=== PATIENT | male | born 1990 | race Caucasian/White ===

== ENCOUNTER 2021-12-03 08:01 | Outpatient (REF) | payer BC, SELFPAY ==
[2021-12-03 11:35] LABS: MANUAL DIFF FLAG NO
[2021-12-03 11:40] LABS: Basophils Absolute Auto 0.1 X10*3/uL (0.0-0.2); Basophils Percent Auto 0.9 % (0-2); Eosinophils Absolute Auto 0.2 X10*3/uL (0.0-0.4); Eosinophils Percent Auto 3.6 % (0-4); Hematocrit 42.5 % (42.0-52.0); Imm Gran Abs Auto 0.03 X10*3/uL (0.00-0.03); Imm Gran Pct Auto 0.5 % (0.0-0.4); Lymphocytes Absolute Auto 2.4 X10*3/uL (1.2-4.9); Lymphocytes Percent Auto 37.3 % (20-40); Mean Corpuscular HGB Conc 32.9 g/dl (31.0-36.0); Mean Platelet Volume 9.4 fL (9.4-12.4); Monocytes Absolute Auto 0.6 X10*3/uL (0.1-1.2); Neutrophils Absolute Auto 3.2 x10*3/uL (2.0-8.3); Neutrophils Percent Auto 48.7 % (45-73); Platelet Count 362 X10*3/uL (160-400); Red Cell Distribution Width 12.5 % (11.0-16.0); White Blood Count 6.5 X10*3/uL (4.8-10.8)
[2021-12-03 11:54] LABS: Alanine Aminotransferase 26 U/L (0-40); Albumin Level 4.5 g/dL (3.5-5.0); Alkaline Phosphatase 57 U/L (39-117); Anion Gap 13 (12-20); Aspartate Amino Transferase 11 U/L (5-37); Bilirubin Total 0.4 mg/dL (0.0-1.0); Blood Urea Nitrogen 18 mg/dL (9-16); Calcium 9.7 mg/dL (8.4-10.2); Carbon Dioxide 27 mmol/L (22-29); Chloride 104 mmol/L (96-108); Cholesterol 167 mg/dL; Estimated Glomerular Filt Rate > 60; Glucose Fasting 110 mg/dL (60-99); HDL Cholesterol 38 mg/dL; LDL Cholesterol Calculated 91 mg/dl; Potassium 4.6 mmol/L (3.3-5.1); Sodium 139 mmol/L (135-145); Total Protein 7.4 g/dL (6.5-8.0); Triglycerides 190 mg/dL
[2021-12-03 12:10] LABS: HBS Num1 3.53 mIU/mL (0-7.99); HBc Num1 0.12 S/CO (0.00-0.79); HBsAGNum1 0.18 S/CO (0.00-0.99); HIV AB/AG Nonreactive (Nonreactive); HIV Num 1 0.12 S/CO (0.00-0.99); Hepatitis B Core Antibody Nonreactive (Nonreactive); Hepatitis B Surface Antigen Negative (Negative); ~Hepatitis B Surface Antibody NONREACTIVE (Nonreactive); ~Hepatitis C Antibody Nonreactive (Nonreactive)
[2021-12-03 12:33] LABS: Erythrocyte Sedimentation Rate 6 MM/HR (0-15)
[2021-12-04 06:51] LABS: Syphilis Screen Nonreactive (Nonreactive)
[2021-12-05 11:36] LABS: CRP High Sensitivity 1.6 mg/L
== END 2021-12-03 08:02 | disposition home or self-care (01) ==
LOC: HO.WFDLDS 08:01
PROVIDERS: Visit Provider Family Medicine
DX: Z00.00 Encounter for general adult medical examination without abnormal findings (principal); Z11.4 Encounter for screening for human immunodeficiency virus [HIV]; Z11.3 Encounter for screening for infections with a predominantly sexual mode of transmission; R61 Generalized hyperhidrosis
CPT/HCPCS: 36415; 80053; 80061; 84443; 85025; 85652; 86141; 86704; 86706; 86780; 86803; 87340; 87389

== ENCOUNTER 2023-01-22 14:38 | Outpatient (AMB) | payer SELFPAY ==
--- NOTE | 2023-01-22 14:42 | MHC.PC.OV ---
Vital Signs 01/22/23 14:44 Height 5 ft 8 in Weight 174 lb BMI 26.5 BP 122/74 Blood Pressure Location Lt brachial Position Sitting Pulse 81 Pulse Source Pulse Oximeter Pulse Oximetry (%) 97 Intake Visit Reasons: Discussed difficulty concentra Intake Note: pt is here to discuss difficulty concentrating Systems Requirements Planner Required: No Accompanied by: Self / Same As Patient Allergies No Known Allergies Allergy (Verified 01/22/23 14:43) Tobacco use date assessed: 01/22/23 Dental Screening Dental Screen Date: 01/22/23 Did you have a dental visit in the last 12 months?: No Did you have a dental problem in the last 6 months where you did not have access to dental care?: No Was dental information given to patient?: Patient declined HPI Discussed difficulty concentra HPI Details 32 y/o male presents to discuss ADHD diagnosis. Had made a referral to neuropsych but he had been having difficulties being seen. Neuropsych had not reached back to him but he states he had been able to be seen by [facility]. Pt also reports some vertigo. Symptoms associated with rolling over in bed. [facility] Medical History Anxiety Depression History of seizures as a child Surgical History [place] teeth removed Family History Other Mental health disorder Social History Household Members Other:: partner Housing: House Alcohol intake: current Alcohol intake frequency: holidays/special occasions only Patient Tobacco Use Status: Never used Tobacco e-Cigarette/Vaping Use: Never Used Second Hand Smoke Exposure: No service: No Current occupational status: employed Current occupational exposures/hazards: No Cognitive needs: No Hearing needs: No Vision needs: Yes Questionnaire Thrive Questionnaire Date Thrive assessed: 07/04/22 KATHY-7 AMB Questionnaire KATHY-7 Date KATHY - 7 assessed: 07/04/22 Source: Developed by Drs. Tin Ferrara, Francesca Gentile, Yomi Parker and colleagues, with an educational ela from [employer]. Review of Systems Const Denies chills, Denies fatigue, Denies fever(s), Denies headache(s) and Denies weakness ENT Denies dizziness and Denies headache(s) Card Denies dyspnea Resp Denies cough, Denies dyspnea, Denies wheezing and Denies other (shortness of breath) Musc Denies numbness and Denies tingling Neuro Denies dizziness, Denies headache(s), Denies numbness, Denies tingling and Denies weakness Psych Reports anxiety and Denies depression Endo Denies fatigue Aller/Immun Denies wheezing Physical exam (Primary Care) Vital Signs: Last Vital Signs Pulse 81 01/22/23 14:44 BP 122/74 01/22/23 14:44 Pulse Ox 97 01/22/23 14:44 BMI result Body Mass Index 26.5 Tobacco/Smoking Status: Tobacco use Status Tobacco use date assessed 01/22/23 01/22/23 14:47 Patient Tobacco Use Status Never used Tobacco 01/22/23 14:47 e-Cigarette/Vaping Use Never Used 01/22/23 14:47 Thrive Assessment: Date of Thrive Assessment Date Thrive assessed 07/04/22 01/22/23 14:47 Const General: well developed; No acute distress Nutritional Appearance: well nourished Orientation/consciousness: patient oriented x3 HENMT Head: Yes normocephalic and Yes atraumatic Eyes General: appearance normal, both eyes and all related structures Pupils: Equal, round and reactive pupils present EOM: EOMs intact bilaterally Resp Effort & Inspection: normal respiratory effort Neuro General: patient oriented x3 and gait normal Cranial nerves: Yes Equal, round and reactive pupils present Psych Affect: normal affect Assessment and Plan Assessment & Plan (1) Difficulty concentrating: Code(s): R41.840 - Attention and concentration deficit Plan: Patient was seen by [employer] for evaluation of difficulty concentrating and has diagnosed him with ADHD; Alyce has shown me the digital image of his diagnosis letter. He will have this forwarded to us and we can begin treatment. Alyce does have some anxiety and would like to try a medication such as Strattera prior to considering medications such as Vyvanse or Adderall. EKG today however shows incomplete right bundle branch block. Will refer to Cardiology prior to beginning therapy for ADHD (2) Vertigo: Code(s): R42 - Dizziness and giddiness Plan: Vertigo symptoms associated with rolling over in bed Appears to be true vertigo Referred for physical therapy/vestibular rehab (3) Incomplete right bundle branch block: Code(s): I45.10 - Unspecified right bundle-branch block Plan: Referred to Cardiology Orders: Orders PT Evaluation and Treatment Today R42 - Dizziness and giddiness AMB EKG-In Office Today R41.840 - Attention and concentration deficit, R42 - Dizziness and giddiness Referrals Cardiology Referral I45.10 - Unspecified right bundle-branch block Coding Level of Care Code Est Pt Level 4 (97425) Diagnoses Difficulty concentrating R41.840 Vertigo R42 Incomplete right bundle branch block I45.10
[2023-01-22 14:44] VITALS: BP 122/74; PULSE 81; O2SAT 97; BMI 26.5
== END 2023-01-22 15:35 | disposition home or self-care (01) ==
PROVIDERS: PCP Family Medicine; Visit Provider Family Medicine
DX: R41.840 Attention and concentration deficit (principal); R42 Dizziness and giddiness; I45.10 Unspecified right bundle-branch block
CPT/HCPCS: 99214

== ENCOUNTER 2023-02-24 12:01 | Outpatient (REF) | payer OTHER, SELFPAY ==
[2023-02-24 15:00] LABS: Estimated Average Glucose 103 mg/dL; Hemoglobin A1c % 5.2 % (<6.0)
[2023-02-24 15:02] LABS: Anion Gap 9 (12-20); Blood Urea Nitrogen 11 mg/dL (9-16); Calcium 9.1 mg/dL (8.4-10.2); Carbon Dioxide 28 mmol/L (22-29); Chloride 106 mmol/L (96-108); Estimated Glomerular Filt Rate > 60; Glucose Fasting 90 mg/dL (60-99); Potassium 4.2 mmol/L (3.3-5.1); Sodium 139 mmol/L (135-145)
== END 2023-02-24 12:02 | disposition home or self-care (01) ==
LOC: HO.WFDLDS 12:01
PROVIDERS: Visit Provider Family Medicine
DX: R73.01 Impaired fasting glucose (principal)
CPT/HCPCS: 36415; 80048; 83036

== ENCOUNTER 2023-02-25 11:52 | Outpatient (AMB) | payer OTHER, SELFPAY ==
[2023-02-25 11:54] VITALS: BP 122/72; PULSE 79; O2SAT 97; BMI 26.9
--- NOTE | 2023-02-25 11:54 | MHC.PC.OV ---
Vital Signs 02/25/23 11:54 Height 5 ft 8 in Weight 177 lb BMI 26.9 BP 122/72 Blood Pressure Location Lt brachial Position Sitting Pulse 79 Pulse Source Pulse Oximeter Pulse Oximetry (%) 97 Oxygen Delivery Method Room Air Intake Visit Reasons: CPE with f/u labs and health maint Intake Note: Pattient is here for physical today, and follow up from last visit, cardiology referral Allergies No Known Allergies Allergy (Verified 02/25/23 12:03) Tobacco use date assessed: 02/25/23 Dental Screening Dental Screen Date: 02/25/23 Did you have a dental visit in the last 12 months?: Yes Did you have a dental problem in the last 6 months where you did not have access to dental care?: No Was dental information given to patient?: Yes HPI CPE with f/u labs and health maint HPI Details 32 y/o pt presents for a CPE with f/u labs and health maintenance. Some labs were drawn 02/24/23. Reviewed labs with pt. Hx of elevated fasting glucose and A1c 5.2%. No recent lipid panel to review. Pt states she tries to eat a healthy diet. Ongoing difficulty concentrating and nurse psych has established ADHD diagnosis. However pt has EKG with R bundle branch block. [facility] Medical History Anxiety Depression History of seizures as a child Surgical History [place] teeth removed Family History Other Mental health disorder Social History Household Members Other:: partner Housing: House Alcohol intake: current Alcohol intake frequency: holidays/special occasions only Patient Tobacco Use Status: Never used Tobacco e-Cigarette/Vaping Use: Never Used Second Hand Smoke Exposure: No service: No Current occupational status: employed Current occupational exposures/hazards: No Cognitive needs: No Hearing needs: No Vision needs: Yes Questionnaire Thrive Questionnaire Date Thrive assessed: 07/04/22 KATHY-7 AMB Questionnaire KATHY-7 Date KATHY - 7 assessed: 07/04/22 Source: Developed by Drs. Tin Ferrara, Francesca Gentile, Yomi Parker and colleagues, with an educational ela from [employer]. Review of Systems Const Denies chills, Denies fatigue, Denies fever(s), Denies headache(s) and Denies weakness Eyes Denies change in vision ENT Denies dizziness, Denies headache(s), Denies hearing loss, Denies nasal congestion, Denies sinus pain, Denies sinus pressure and Denies sore throat Card Denies chest pain, Denies lightheadedness, Denies dyspnea and Denies other (palpitations) Resp Denies cough, Denies dyspnea and Denies wheezing GI Denies abdominal pain, Denies melena, Denies hematochezia, Denies change in bowel habits, Denies dyspepsia and Denies nausea Denies hematuria and Denies dysuria Musc Denies abnormal gait, Denies myalgias, Denies arthralgias, Denies numbness and Denies tingling Skin/Breast Denies rash, Denies unusual bruising and Denies wounds Neuro Denies abnormal gait, Denies dizziness, Denies headache(s), Denies memory loss, Denies numbness, Denies Sensory deficit (Neuro), Denies tingling and Denies weakness Psych Denies anxiety, Denies depression and Denies memory loss Endo Denies cold intolerance, Denies fatigue, Denies heat intolerance, Denies polydipsia and Denies polyuria Roshan/Lymph Denies easy bleeding and Denies easy bruising Aller/Immun Denies wheezing Physical exam (Primary Care) Vital Signs: Last Vital Signs Pulse 79 02/25/23 11:54 BP 122/72 02/25/23 11:54 Pulse Ox 97 02/25/23 11:54 Oxygen Delivery Method Room Air 02/25/23 11:54 BMI result Body Mass Index 26.9 Tobacco/Smoking Status: Tobacco use Status Tobacco use date assessed 02/25/23 02/25/23 12:10 Patient Tobacco Use Status Never used Tobacco 02/25/23 12:01 e-Cigarette/Vaping Use Never Used 02/25/23 12:01 Thrive Assessment: Date of Thrive Assessment Date Thrive assessed 07/04/22 02/25/23 12:01 Const General: no acute distress, well developed, alert and awake Nutritional Appearance: well nourished Orientation/consciousness: patient oriented x3 HENMT Head: Yes normocephalic and Yes atraumatic Ears: hearing grossly normal bilaterally and TM's normal bilaterally General nose exam: Normal external nose present and Normal nares present Mouth: Normal oral and palatal mucosa present and moist mucous membranes Teeth and gingiva: dentition normal Throat: Yes posterior oropharynx normal Eyes General: appearance normal, both eyes and all related structures Pupils: Equal, round and reactive pupils present and Pupil accommodation reflex normal EOM: EOMs intact bilaterally Neck Neck: Yes normal visual inspection, Yes no lymphadenopathy and Yes trachea midline Thyroid: Thyroid normal Carotids: no bruits Lymphatic: no lymphadenopathy noted Chest Chest palpation & inspection: normal inspection of the chest Resp Effort & Inspection: normal respiratory effort Auscultation: clear to auscultation bilaterally Cardio Rate: regular rate Rhythm: regular rhythm Heart sounds: S1 normal heart sound present, S2 normal heart sound present, no gallops, no murmurs and no rubs Bruits: no abdominal aortic bruits and no carotid bruits GI Palpation (GI): No Abdominal aortic bruit present, Soft to palpation, nontender, No hepatosplenomegaly present and No Rebound tenderness present Auscultation: normal bowel sounds General: Yes no CVA tenderness Back/Spine/Pelvis Back: no CVA tenderness Cervical Spine: cervical ROM normal and No Cervical spine tenderness Thoracic/Lumbar Spine: thoraco-lumbar ROM normal, No pain with thoraco-lumbar ROM, No thoracic spinal tenderness and No lumbar spinal tenderness Skin Lesions: no lesions Rashes: no rashes Trauma: no lacerations or abrasions Wounds: no wounds Nails: normal Neuro General: patient oriented x3 Cranial nerves: Yes Equal, round and reactive pupils present Cognition (Neuro): normal cognition Gait exam (Neuro): Normal gait present Motor exam (neuro): 5/5 motor strength present throughout Sensory Exam: No Sensory deficit (Neuro) Deep tendon reflexes (DTR's): Right patellar reflex intensity grade: 2+ and Left patellar reflex intensity grade: 2+ Extrem General: Yes normal to inspection and No edema Psych Appearance: grossly normal Affect: normal affect Attitude: cooperative Thought process: Normal thought process present Assessment and Plan Assessment & Plan (1) Adult general medical exam: Code(s): Z00.00 - Encounter for general adult medical examination without abnormal findings Plan: Alyce presents for her annual physical exam Encouraged healthy diet with active lifestyle and plenty of exercise (2) Difficulty concentrating: Code(s): R41.840 - Attention and concentration deficit Plan: Ongoing difficulty concentrating and nurse psych has established ADHD diagnosis However, patient has EKG with right bundle-branch block Asking Cardiology to evaluate regarding safety of stimulant medications. She will follow-up in a mid April after her cardiology appointment. (3) Depression with anxiety: Code(s): F41.8 - Other specified anxiety disorders Plan: May improve with addition bupropion We can follow this (4) Right bundle branch block: Code(s): I45.10 - Unspecified right bundle-branch block Plan: Has appointment with cardiology in early April Coding Level of Care Code Est Pt Level 3 (01937) Est Pt Prev Care 18-39y(45629) Diagnoses Adult general medical exam Z00.00 Difficulty concentrating R41.840 Depression with anxiety F41.8 Right bundle branch block I45.10
== END 2023-02-25 13:22 | disposition home or self-care (01) ==
PROVIDERS: PCP Family Medicine; Visit Provider Family Medicine
DX: Z00.00 Encounter for general adult medical examination without abnormal findings (principal); R41.840 Attention and concentration deficit; F41.8 Other specified anxiety disorders; I45.10 Unspecified right bundle-branch block
CPT/HCPCS: 99395

== ENCOUNTER 2023-04-30 14:01 | Outpatient (AMB) | payer SELFPAY ==
[2023-04-30 14:03] VITALS: BP 102/66; PULSE 98; BMI 27.4
--- NOTE | 2023-04-30 14:03 | A.OFFVIS_ITS ---
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 Patient does not have any cardiac issues whatsoever including coronary disease or cardiomyopathy or in fact anything cardiac sounding. Patient does not have any specific symptoms either including chest pains or shortness of breath or in fact anything cardiac sounding symptoms. No significant family history from cardiac standpoint. [facility] Medical History Anxiety Depression History of seizures as a child Surgical History [place] teeth removed Family History Other Mental health disorder Social History Household Members Other:: partner Housing: House Alcohol intake: current Alcohol intake frequency: holidays/special occasions only Patient Tobacco Use Status: Never used Tobacco e-Cigarette/Vaping Use: Never Used Second Hand Smoke Exposure: No service: No Current occupational status: employed Current occupational exposures/hazards: No Cognitive needs: No Hearing needs: No Vision needs: Yes Review of Systems Const Denies chills, Denies daytime sleepiness, Denies fatigue, Denies fever(s), Denies frequent falls, Denies night sweats, Denies snoring, Denies weakness, Denies weight gain and Denies weight loss Eyes Denies loss of vision ENT Denies dizziness and Denies hearing loss Card Denies chest pain, Denies chest pain with activity, Denies syncope, Denies rapid heart rate, Denies edema, Denies claudication, Denies leg edema, Denies lightheadedness, Denies palpitations, Denies dyspnea, Denies dyspnea on exertion and Denies orthopnea Resp Denies cough, Denies excessive phlegm production, Denies dyspnea, Denies dyspnea on exertion, Denies snoring and Denies wheezing GI Denies abdominal pain, Denies hematochezia, Denies change in bowel habits, Denies change in stool character, Denies heartburn, Denies nausea and Denies vomiting Denies hematuria, Denies dysuria and Denies urinary frequency Musc Denies arthralgias, Denies muscle weakness, Denies numbness and Denies tingling Skin/Breast Denies nail changes and Denies rash Neuro Denies Abnormal speech present, Denies dizziness, Denies syncope, Denies frequent falls, Denies loss of vision, Denies memory loss, Denies numbness, Denies tingling and Denies weakness Psych Denies depression and Denies memory loss Endo Denies fatigue and Denies palpitations Aller/Immun Denies wheezing Physical Exam Vital Signs: Last Vital Signs Pulse 98 04/30/23 14:03 BP 102/66 04/30/23 14:03 BMI result Body Mass Index 27.4 Const General: comfortable and no acute distress Orientation/consciousness: patient oriented x3 HEENT Other: Unremarkable Head: Yes normal to inspection Neck Neck: Yes normal visual inspection Chest Chest palpation & inspection: normal inspection of the chest Resp Auscultation: clear to auscultation bilaterally Cardio Palpation: normal PMI Heart sounds: S1 normal heart sound present, S2 normal heart sound present, no gallops, no murmurs and no rubs GI Palpation (GI): Soft to palpation Back/Spine/Pelvis Other: unremarkable Skin General skin exam: no rashes or lesions noted Neuro General: patient oriented x3 Speech: No Abnormal speech present Extrem General: Yes normal to inspection Psych Mental Status: mental status grossly normal Assessment & Plan Assessment & Plan (1) Right bundle branch block: Code(s): I45.10 - Unspecified right bundle-branch block Plan Recent EKG reviewed. Underlying rhythm is sinus at 72/Min with sinus arrhythmia; incomplete right bundle-branch block pattern; normal NV and corrected QT. Findings discussed with patient. We can get echocardiogram to ensure there is no structural finding. Otherwise, mainly reassurance. Orders: Orders CA echo transthoracic complete Today I45.10 - Unspecified right bundle-branch block Coding Level of Care Code New Pt Level 3 (84007) Diagnoses Right bundle branch block I45.10
== END 2023-04-30 14:21 | disposition home or self-care (01) ==
PROVIDERS: PCP Family Medicine; Visit Provider Internal Medicine
DX: I45.10 Unspecified right bundle-branch block (principal)
CPT/HCPCS: 99203

== ENCOUNTER → 2023-04-30 14:01 | Outpatient (BNVA) | payer BC, SELFPAY | PROVIDERS: PCP Family Medicine; Visit Provider Internal Medicine ==

== ENCOUNTER → 2023-05-26 12:53 | Outpatient (REF) | payer BC, SELFPAY ==
--- NOTE | 2023-05-26 12:57 | CA_ITS ---
Transthoracic Echocardiogram Patient (Last, First, Middle): Alyce Gorman, Gender: Male Date of : 1990 Age: 32 Procedure Date: 05/26/2023 Procedure Type: Transthoracic Echocardiogram Location: OP Height: 172.72 cm Weight: 79.38 kg BSA: 1.93 m2 Heart Rate: bpm BP: 116 / 70 mmHg [employer]aa Certified Powerplant Mechanic: CAYLA Referring MD: Osvaldo North MD [employer] Cook: Kiet García MD Symptoms: I45.10 - Unspecified right bundle-branch block Study Quality: Adequate w Contrast ECG Rhythm: Sinus Conclusions: - Essentially normal stusy Findings Procedure Information Contrast agent, definity, is being given per protocol without apparent complications. Left Ventricle Normal left ventricular cavity size. There is normal left ventricular wall thickness. The left ventricular systolic function is hyperdynamic. The visually estimated ejection fraction is >70%. Spectral Doppler is indicative of a normal filling pattern. Right Ventricle Normal right ventricular cavity size and systolic function. Atria The left atrium is normal in size. Interatrial shunt cannot be excluded. The right atrium is normal in size. Aortic Valve Normal aortic valve structure and function. There is no aortic valve stenosis. There is no aortic valve regurgitation. Mitral Valve Likely normal mitral valve structure and function. There is no mitral valve regurgitation. There is no mitral valve stenosis. Pulmonic Valve The pulmonic valve is likely normal. There is no pulmonic valve regurgitation. Tricuspid Valve Likely normal tricuspid valve structure and function. There is trace tricuspid valve regurgitation. The right ventricular systolic pressure is normal. The right ventricular systolic pressure is 19 mmHg. Normal right atrial pressure. There is no evidence of pulmonary hypertension. Great Vessels All visible segments of the aorta are normal in size. The pulmonary artery was not well visualized. Venous The inferior vena cava is normal in size and collapses greater than 50% with inspiration. Pericardium/Pleural There is no evidence of pericardial effusion. Prior Study Comparison No prior study available for comparison. Measurements 2D Linear Measurements IVSd: 0.89 0.6-0.9/0.6-1.0 cm LVIDd: 4.20 3.9-5.3/4.2-5.9 cm LVIDd Index: 2.18 2.4-3.2/2.2-3.1 cm/m2 LVIDs: 2.63 2.0-3.6 cm LVPWd: 0.89 0.7-1.1 cm LA Diam: 2.80 2.7-3.8/3.0-4.0 cm LAIDs Index: 1.45 1.5-2.3 cm/m2 LV Mass: 144.46 67-162/88-224 g LV Mass Index: 74.85 43-95/49-115 g/m2 LVOT Diam: 2.10 3.0+(-)1.3 cm 2D Systolic Function EF 4C: 74.10 >55% EF 2C: 67.40 >55% EF BiP: 71.20 >55% Mitral Valve MV Pk E: 0.79 MV PK A: 0.59 MV Decel Time: 211.00 E/A: 1.30 E'Lateral: 17.80 E'Medial: 10.80 E/E' Med: 7.30 E/E' Lat: 4.40 PHT: 62.00 MVA PHT: 3.55 Decel [place]: 3.74 Aortic Valve AoV Pk El: 1.20 AoV Mn El: 0.77 AoV VTI: 0.24 AoV Pk Grad: 6.00 Aov Mn Grad: 3.00 PATTI Cont.VTI: 3.07 LVOT LVOT Pk El: 1.08 LVOT Mn El: 0.74 LVOT VTI: 0.21 LVOT Pk Grad: 5.00 LVOT Mn Grad: 3.00 LVOT Diam: 2.10 LVOT Area: 3.46 Diastolic Function MV Pk E: 0.79 MV Pk A: 0.59 E/A: 1.30 E'Medial: 10.80 E/E' Med: 7.30 E' Laterial: 17.80 E/E' Lat: 4.40 Right Ventricle TAPSE (mm): 20.80 TVS' El: 11.20 Tricuspid Valve TR Pk El: 2.00 TR Pk Grad: 16.00 RA Press: 3.00 RVSP: 19.00 Great Vessels Aorta Sinus of Valsalva: 3.01 2.0-3.[address] [place]: 2.61 1.7-3.4 cm Ao Asc: 3.00 2.1-3.4 cm Updated in Other Vendor System with Status of Final Kiet García MD electronically signed on 05/27/2023 4:40:04 PM with status of Final
== END ==
LOC: HO.CARD 12:53
PROVIDERS: PCP Family Medicine; Visit Provider Internal Medicine
DX: I45.10 Unspecified right bundle-branch block (principal)
CPT/HCPCS: 93306; Q9957

== ENCOUNTER → 2023-05-26 12:57 | Outpatient (BNV) | payer SELFPAY | PROVIDERS: PCP Family Medicine; Visit Provider Internal Medicine Cardiovascular Disease | DX: I45.10 Unspecified right bundle-branch block (principal) | CPT/HCPCS: 93306 ==

== ENCOUNTER 2023-06-24 12:48 | Outpatient (RCR) | payer BC, SELFPAY ==
[2023-06-24 12:51] VITALS: BP 114/72; PULSE 89
--- NOTE | 2023-06-24 13:42 | MHC.PT.EP ---
[facility] [place] Office [place] Office [place] Office [address] Me[address] Lamar [address] [phone] F: [phone] F: [phone] F: [phone] F: [phone] Physical Therapy Plan of Care Date of Evaluation: 06/24/23 Date of Surgery: NA Diagnosis: Vertigo Assessment: Alyce is a 32 year old assigned male at but identifies as female who is referred to PT for vertigo . She reports of having sudden onset of symptoms of vertigo about a year. She describes them as room spinning and it is present with rolling in bed, looking down and supine to sit. Her symptoms lasts for a few seconds. She denies any nausea or vomiting. On PT examination she presents with intact smooth pursuit, visual tracking, saccades, negative head thrust and negative VBI. She was positive for BPPV in [facility]. She lives with her spouse and is independent with ADLS. She works as a software admin. She would benefit from skilled PT to address the aforementioned impairments and improve tolerance to functional activities. Frequency and Duration: The patient will be seen 2/week for 4 weeks Short Term Goals: Correction Goals: Patient to be educated on symptoms and indications to return to therapy when needed min 4 weeks. Pt will be negative for nystagmus or reports of vertigo in all diagnostic positions bilaterally to resolution of BPPV in 4 weeks. Patient to be able to functionally move in all planes and directions without provocation of dizziness to show return to PLOF in 4 weeks Treatment Plan: Modalities to reduce pain, spasms and effusion. Manual therapy to restore motion and function. Therapeutic exercise to improve strength and flexibility. Neuromuscular re-education for posture and balance. Therapeutic activities to return to functional activities of daily living. Electronically signed by: Jane Augustin PT DPT Please sign and return to therapist. Thank you for your referral.
--- NOTE | 2023-07-27 13:50 | MHC.PT.DC ---
[facility] [place] Office [place] Office [place] Office [address] Sharif Lamar [address] [phone] F: [phone] F: [phone] F: [phone] F: [phone] Physical Therapy Discharge Report Diagnosis: Vertigo Date of Surgery: NA Date of Evaluation: 06/24/23 Date of Discharge: 07/27/23 Treatments to Date: 1 Cancellations to Date: 0 No Shows to Date: 0 Discharge Status: Achieved Goals Improved Function Independent with HEP Discharge Summary: Alyce attended only 1 PT visit. All her symptoms of BPPV were resolved in that visit. She has not had any symptoms of vestibular dysfunction in over a month. She is therefore being d/c from PT. Electronically signed by: Jane Augustin, PT DPT Please sign and return to therapist. Thank you for your referral.
== END 2023-07-27 13:50 | disposition home or self-care (01) ==
LOC: HO.PT 12:48
PROVIDERS: PCP Family Medicine; Visit Provider Family Medicine
DX: R42 Dizziness and giddiness (principal)
CPT/HCPCS: 95992; 97110; 97161

== ENCOUNTER 2023-07-10 11:40 | Outpatient (AMB) | payer BC, SELFPAY ==
[2023-07-10 11:47] VITALS: BP 122/72; PULSE 75; O2SAT 96; BMI 27.5
--- NOTE | 2023-07-10 11:47 | MHC.PC.OV ---
Vital Signs 07/10/23 11:47 Height 5 ft 8 in Weight 181 lb BMI 27.5 BP 122/72 Blood Pressure Location Rt brachial Position Sitting Pulse 75 Pulse Source Pulse Oximeter Pulse Oximetry (%) 96 Oxygen Delivery Method Room Air Intake Visit Reasons: f/u cardiology Front End Application Developer Required: No Accompanied by: Self / Same As Patient Allergies No Known Allergies Allergy (Verified 07/10/23 12:02) Tobacco use date assessed: 07/10/23 Dental Screening Dental Screen Date: 07/10/23 Did you have a dental visit in the last 12 months?: No Did you have a dental problem in the last 6 months where you did not have access to dental care?: No Was dental information given to patient?: No (no dental insurance) HPI f/u cardiology HPI Details 32 y/o patient presents to f/u Cardiology visit regarding incomplete R bundle brach block on EKG. They had ordered an echocardiogram to ensure no structural finding. [facility] Medical History Anxiety Depression History of seizures as a child Surgical History [place] teeth removed Family History Other Mental health disorder Social History Household Members Other:: partner Housing: House Alcohol intake: current Alcohol intake frequency: holidays/special occasions only Patient Tobacco Use Status: Never used Tobacco e-Cigarette/Vaping Use: Never Used Second Hand Smoke Exposure: No service: No Current occupational status: employed Current occupational exposures/hazards: No Cognitive needs: No Hearing needs: No Vision needs: Yes Questionnaire PHQ-9 Over the last 2 weeks, how often have you been bothered by any of the following problems? 1. Little interest or pleasure in doing things: more than half the days 2. Feeling down, depressed, or hopeless: several days 3. Trouble falling or staying asleep, or sleeping too much: more than half the days 4. Feeling tired or having little energy: nearly every day 5. Poor appetite or overeating: more than half the days 6. Feeling bad about yourself - or that you are a failure or have let yourself or your family down: several days 7. Trouble concentrating on things, such as reading the newspaper or watching television: nearly every day 8. Moving or speaking so slowly that other people could have noticed. Or the opposite - being so fidgety or restless that you have been moving around a lot more than usual: not at all 9. Thoughts that you would be better off or of hurting yourself in some way: not at all Total score: 14 73991 - PHQ-9 Billing: Yes Source: Developed by Drs. Tin Ferrara, Francesca Gentile, Yomi Parker and colleagues, with an educational ela from [employer]. Thrive Questionnaire Date Thrive assessed: 07/10/23 I am a: Patient What is your living situation today?: I have a steady place to live Within the past 12 months, did the food you bought not last and you didn't have the money to get more?: Never true Within the past 12 months, did you worry whether your food would run out before you got money to buy more?: Never true Do you have trouble paying for medicines?: No Do you have trouble getting transportation to medical appointments?: No Do you have trouble paying your heating and electricity bill?: No Do you have trouble taking care of your child, family member or friend?: No Do you have trouble with day-to-day activities such as bathing, preparing meals, shopping, managing finances, etc.?: No Are you currently unemployed and looking for a job?: No Are you interested in more education?: No Please select the resources that you would like help with: None Currently or been in a relationship where the following occur: no concerns reported AUDIT C Alcohol Use Questionnaire (AUDIT-C) 1. How often do you have a drink containing alcohol?: Never 3. How often do you have six or more drinks on one occasion?: Never Total Score: 0 KATHY-7 AMB Questionnaire KATHY-7 Date KATHY - 7 assessed: 07/10/23 Feeling nervous, anxious, or on edge: 2 = More than half the days Not being able to stop or control worryin = More than half the days Worrying too much about different things: 2 = More than half the days Trouble relaxin = More than half the days Being so restless that it is hard to sit still: 2 = More than half the days Becoming easily annoyed or irritable: 1 = Several days Feeling afraid as if something awful might happen: 1 = Several days Total KATHY-7 score (0-4 normal; 5-9 mild; 10-14 moderate; 15-21 severe): 12 Source: Developed by Drs. Tin Ferrara, Francesca Gentile, Yomi Parker and colleagues, with an educational ela from [employer]. KATHY-7 Assessment Billing KATHY-7 Assessment Tool: KATHY-7 Assessment 63972 Review of Systems Const Denies chills, Denies fatigue, Denies fever(s), Denies headache(s) and Denies weakness ENT Denies dizziness and Denies headache(s) Card Denies dyspnea Resp Denies cough, Denies dyspnea, Denies wheezing and Denies other (shortness of breath) Musc Denies numbness and Denies tingling Neuro Denies dizziness, Denies headache(s), Denies numbness, Denies tingling and Denies weakness Psych Denies anxiety and Denies depression Endo Denies fatigue Aller/Immun Denies wheezing Physical exam (Primary Care) Vital Signs: Last Vital Signs Pulse 75 07/10/23 11:47 BP 122/72 07/10/23 11:47 Pulse Ox 96 07/10/23 11:47 Oxygen Delivery Method Room Air 07/10/23 11:47 BMI result Body Mass Index 27.5 Tobacco/Smoking Status: Tobacco use Status Tobacco use date assessed 07/10/23 07/10/23 12:04 Patient Tobacco Use Status Never used Tobacco 07/10/23 11:47 e-Cigarette/Vaping Use Never Used 07/10/23 11:47 PHQ-9: PHQ-9 Score PHQ-9: Total score 14 07/10/23 12:04 Thrive Assessment: Date of Thrive Assessment Date Thrive assessed 07/10/23 07/10/23 12:04 Currently or been in a relationship where the following occur: no concerns reported Const General: well developed; No acute distress Nutritional Appearance: well nourished Orientation/consciousness: patient oriented x3 HENMT Head: Yes normocephalic and Yes atraumatic Eyes General: appearance normal, both eyes and all related structures Pupils: Equal, round and reactive pupils present EOM: EOMs intact bilaterally Resp Effort & Inspection: normal respiratory effort Auscultation: clear to auscultation bilaterally Cardio Rate: regular rate Rhythm: regular rhythm Heart sounds: S1 normal heart sound present, S2 normal heart sound present, no gallops, no murmurs and no rubs Neuro General: patient oriented x3 and gait normal Cranial nerves: Yes Equal, round and reactive pupils present Psych Affect: normal affect Assessment and Plan Assessment & Plan (1) ADHD: Code(s): F90.9 - Attention-deficit hyperactivity disorder, unspecified type Plan: Neuropsych?testing?establish?diagnosis?of?ADHD. Had?asked?Cardiology?to?rule?out?any?conduction?abnormalities?or?concerns. Workup?including?EKG?and?echocardiogram?are?okay. Start?Adderall?XR?10?mg?daily. Will?follow-up?in?1?month?and?adjust?dose?if?needed Patient?to?sign?treatment?contract?today. (2) Right bundle branch block: Code(s): I45.10 - Unspecified right bundle-branch block Plan: Asthma Medications: New dextroamphetamine-amphetamine 10 mg ER (Adderall XR) MassPat Verified. Partial Fill upon patient request. 10 mg PO QAM 30 days 30 caps 0RF Coding Level of Care Code Est Pt Level 3 (72073) Diagnoses ADHD F90.9 Right bundle branch block I45.10 Additional Codes KATHY-7 Assessment Billing - KATHY-7 Assessment Tool: KATHY-7 Assessment 29696 ([id number])
== END 2023-07-10 13:05 | disposition home or self-care (01) ==
PROVIDERS: PCP Family Medicine; Visit Provider Family Medicine
DX: F90.9 Attention-deficit hyperactivity disorder, unspecified type (principal); I45.10 Unspecified right bundle-branch block
CPT/HCPCS: 96127; 99213

== ENCOUNTER 2023-08-07 13:41 | Outpatient (AMB) | payer BC, SELFPAY ==
--- NOTE | 2023-08-07 13:54 | MHC.PC.OV ---
Vital Signs 08/07/23 13:55 Height 5 ft 8 in Weight 176 lb 4 oz BMI 26.8 BP 120/72 Blood Pressure Location Lt brachial Position Sitting Pulse 79 Pulse Source Pulse Oximeter Pulse Oximetry (%) 98 Oxygen Delivery Method Room Air Intake Visit Reasons: f/u ADHD Intake Note: Patient is here to follow up on ADHD Allergies No Known Allergies Allergy (Verified 08/07/23 14:00) Tobacco use date assessed: 08/07/23 Dental Screening Dental Screen Date: 08/07/23 Did you have a dental visit in the last 12 months?: No Did you have a dental problem in the last 6 months where you did not have access to dental care?: No Was dental information given to patient?: Patient declined HPI f/u ADHD HPI Details 32 y/o presents to f/u ADHD. Had started him on Adderall XR 10mg daily last office visit in June. Pt reports she thinks Adderall has been improving his motivation to start tasks and has noticed improvement on his symptoms of executive dysfunction. She notes medication mostly effective. She does note inconsistencies with his sleep. He reports he does have anxiety but states he has always had this and does not think medication worsened it. She reports she does not think she has been snoring much but will confirm this with his . She denies any urinary symptoms waking up at night. Pt notes some forgetfulness with appetite/food. [facility] Medical History (Updated 08/07/23 @ 14:44 by Dayne Kramer) History of seizures as a child Anxiety Depression Surgical History [place] teeth removed Family History Other Mental health disorder Social History Household Members Other:: partner Housing: House Alcohol intake: current Alcohol intake frequency: holidays/special occasions only Patient Tobacco Use Status: Never used Tobacco e-Cigarette/Vaping Use: Never Used Second Hand Smoke Exposure: No service: No Current occupational status: employed Current occupational exposures/hazards: No Cognitive needs: No Hearing needs: No Vision needs: Yes Questionnaire Thrive Questionnaire Date Thrive assessed: 07/10/23 KATHY-7 AMB Questionnaire KATHY-7 Date KATHY - 7 assessed: 01/12/24 Source: Developed by Drs. Tin Ferrara, Francesca Gentile, Yomi Parker and colleagues, with an educational ela from [employer]. Review of Systems Const Denies chills, Denies fatigue, Denies fever(s), Denies headache(s) and Denies weakness ENT Denies dizziness and Denies headache(s) Card Denies chest pain, Denies lightheadedness, Denies dyspnea and Denies other (Palpitations) Resp Denies cough, Denies dyspnea, Denies wheezing and Denies other ( shortness of breath) Musc Denies numbness and Denies tingling Neuro Denies dizziness, Denies headache(s), Denies numbness, Denies tingling, Denies paresthesias and Denies weakness Psych Denies anxiety and Denies depression Endo Denies fatigue Aller/Immun Denies wheezing Physical exam (Primary Care) Vital Signs: Last Vital Signs Pulse 79 08/07/23 13:55 BP 120/72 08/07/23 13:55 Pulse Ox 98 08/07/23 13:55 Oxygen Delivery Method Room Air 08/07/23 13:55 BMI result Body Mass Index 26.8 Tobacco/Smoking Status: Tobacco use Status Tobacco use date assessed 08/07/23 08/07/23 14:02 Patient Tobacco Use Status Never used Tobacco 08/07/23 14:02 e-Cigarette/Vaping Use Never Used 08/07/23 14:02 Thrive Assessment: Date of Thrive Assessment Date Thrive assessed 07/10/23 08/07/23 14:02 Const General: no acute distress and well developed Nutritional Appearance: well nourished Orientation/consciousness: patient oriented x3 [facility] Head: Yes normocephalic and Yes atraumatic Eyes General: appearance normal, both eyes and all related structures Pupils: Equal, round and reactive pupils present EOM: EOMs intact bilaterally Resp Effort & Inspection: normal respiratory effort Auscultation: clear to auscultation bilaterally Cardio Rate: regular rate Rhythm: regular rhythm Heart sounds: S1 normal heart sound present, S2 normal heart sound present, no gallops, no murmurs and no rubs Neuro General: patient oriented x3 and gait normal Cranial nerves: Yes Equal, round and reactive pupils present Psych Affect: normal affect Assessment and Plan Assessment & Plan (1) ADHD: Code(s): F90.9 - Attention-deficit hyperactivity disorder, unspecified type Plan: Mostly effective?but?may?benefit?from?an?increase?in?medication. No?significant?or?certain?increase?in?anxiety. Some?difficulty?with?sleep?but?this?seems?to?be?in?the?middle?of?the?night?rather?than?when?trying?to?fall?asleep. She?will?ask?her?partner?if?she?is?having?any?issues?with?snoring?or?holding?her?breath/apnea. She?will?let?me?know?if?symptoms?worsen?with?increase?in?her?Adderall. Some?forgetfulness?with?appetite?and?food.??Advised?to?make?regular?meals?part?of?a?routine?to?remember?to?get?some?regular,?good?nutrition.??Minimal?weight?loss.??We?can?follow?this. (2) Anxiety: Code(s): F41.9 - Anxiety disorder, unspecified Medications: Changed From dextroamphetamine-amphetamine 10 mg ER (Adderall XR) [facility]Pat Verified. Partial Fill upon patient request. 10 mg PO QAM 30 days 30 caps 0RF To dextroamphetamine-amphetamine 10 mg ER (Adderall XR) [facility]Pat Verified. Partial Fill upon patient request. 20 mg (2 x 10 mg) PO QAM 60 caps 0RF 30 days Coding Level of Care Code Est Pt Level 3 (84372) Diagnoses ADHD F90.9 Anxiety F41.9
[2023-08-07 13:55] VITALS: BP 120/72; PULSE 79; O2SAT 98; BMI 26.8
== END 2023-08-07 14:49 | disposition home or self-care (01) ==
PROVIDERS: PCP Family Medicine; Visit Provider Family Medicine
DX: F90.9 Attention-deficit hyperactivity disorder, unspecified type (principal); F41.9 Anxiety disorder, unspecified
CPT/HCPCS: 99213

== ENCOUNTER 2023-11-17 15:27 | Outpatient (AMB) | payer BC, SELFPAY ==
[2023-11-17 15:37] VITALS: BP 112/64; PULSE 93; O2SAT 97; BMI 27.3
--- NOTE | 2023-11-17 15:37 | A.OFFPC_ITS ---
Vital Signs 11/17/23 15:37 Height 5 ft 8 in Weight 179 lb 4 oz BMI 27.3 BP 112/64 Blood Pressure Location Lt brachial Position Sitting Pulse 93 Pulse Source Pulse Oximeter Pulse Oximetry (%) 97 Oxygen Delivery Method Room Air Intake Visit Reasons: F/U Intake Note: Patient is here for follow up on increase ADHD med. Allergies No Known Allergies Allergy (Verified 11/17/23 15:39) Medication List - Last Reconciled 11/17/23 by Alan Haq MD dextroamphetamine-amphetamine 10 mg ER (Adderall XR) 20 mg (2 x 10 mg) PO QAM 30 days estradiol mg PO spironolactone 50 mg PO BID Tobacco use date assessed: 11/17/23 Dental Screening Dental Screen Date: 08/07/23 HPI F/U HPI Details 33 y/o pt presents to f/u ADHD. Pt reports nausea for the first couple weeks with the change in her meds but reports this has improved. She denies any increased anxiety/appetite changes. She notes difficulty sleeping but does not attribute this to her change in meds. [facility] Medical History (Updated 08/07/23 @ 14:44 by Dayne Kramer) History of seizures as a child Anxiety Depression Surgical History [place] teeth removed Family History Other Mental health disorder Social History Household Members Other:: partner Housing: House Alcohol intake: current Alcohol intake frequency: holidays/special occasions only Patient Tobacco Use Status: Never used Tobacco e-Cigarette/Vaping Use: Never Used Second Hand Smoke Exposure: No service: No Current occupational status: employed Current occupational exposures/hazards: No Cognitive needs: No Hearing needs: No Vision needs: Yes Questionnaire Thrive Questionnaire Date Thrive assessed: 07/10/23 KATHY-7 AMB Questionnaire KATHY-7 Date KATHY - 7 assessed: 07/10/23 Source: Developed by Drs. Tin Ferrara, Francesca Gentile, Yomi Parker and colleagues, with an educational ela from [email or web address]. Review of Systems Const Denies chills, Denies fatigue, Denies fever(s), Denies headache(s) and Denies weakness ENT Denies dizziness and Denies headache(s) Card Denies chest pain, Denies lightheadedness, Denies dyspnea and Denies other (Palpitations) Resp Denies cough, Denies dyspnea, Denies wheezing and Denies other ( shortness of breath) Musc Denies numbness and Denies tingling Neuro Denies dizziness, Denies headache(s), Denies numbness, Denies tingling, Denies paresthesias and Denies weakness Psych Denies anxiety and Denies depression Endo Denies fatigue Aller/Immun Denies wheezing Physical exam (Primary Care) Vital Signs: Last Vital Signs Pulse 93 11/17/23 15:37 BP 112/64 11/17/23 15:37 Pulse Ox 97 11/17/23 15:37 Oxygen Delivery Method Room Air 11/17/23 15:37 BMI result Body Mass Index 27.3 Tobacco/Smoking Status: Tobacco use Status Tobacco use date assessed 11/17/23 11/17/23 15:44 Patient Tobacco Use Status Never used Tobacco 11/17/23 15:37 e-Cigarette/Vaping Use Never Used 11/17/23 15:37 Thrive Assessment: Date of Thrive Assessment Date Thrive assessed 07/10/23 11/17/23 15:37 Const General: no acute distress and well developed Nutritional Appearance: well nourished Orientation/consciousness: patient oriented x3 HENMT Head: Yes normocephalic and Yes atraumatic Eyes General: appearance normal, both eyes and all related structures Pupils: Equal, round and reactive pupils present EOM: EOMs intact bilaterally Resp Effort & Inspection: normal respiratory effort Auscultation: clear to auscultation bilaterally Cardio Rate: regular rate Rhythm: regular rhythm Heart sounds: S1 normal heart sound present, S2 normal heart sound present, no gallops, no murmurs and no rubs Neuro General: patient oriented x3 and gait normal Cranial nerves: Yes Equal, round and reactive pupils present Psych Affect: normal affect Assessment and Plan Assessment & Plan (1) ADHD: Code(s): F90.9 - Attention-deficit hyperactivity disorder, unspecified type Plan: Medication?is?efficacious?at?new?dose?of?20?mg?daily No?adverse?effects?such?as?appetite?suppression,?anxiety?or?sleep?disturbance. Continue?current?medication Coding Level of Care Code Est Pt Level 3 (91560) Diagnoses ADHD F90.9
== END 2023-11-17 16:23 | disposition home or self-care (01) ==
PROVIDERS: PCP Family Medicine; Visit Provider Family Medicine
DX: F90.9 Attention-deficit hyperactivity disorder, unspecified type (principal)
CPT/HCPCS: 99213